=== PATIENT | female | born 1990 | race Caucasian/White ===

== ENCOUNTER 2017-07-27 11:47 | Emergency (ER) | payer MEDICAID, OTHER ==
[2017-07-27 11:47] VITALS: BMI 31.6
--- NOTE | 2017-07-27 12:09 | C.PDOC ---
History Of Present Illness 26-year-old female, currently , presents to the ER via BLS for evaluation of vaginal spotting. Patient noticed some vaginal bleeding this morning. She then called her shafting worker Dr. Briones, who referred her to the ER for further evaluation. LMP was 04/18/17. She otherwise denies any severe abdominal pain, SOB, chest pain, dizziness, nausea, vomiting, weakness, or other complaints. Time Seen by Provider: 07/27/17 11:57 Chief Complaint (Nursing): Abdominal Pain History Per: Patient History/Exam Limitations: no limitations Onset/Duration Of Symptoms: Hrs Current Symptoms Are (Timing): Still Present Quality Of Discomfort: Cramping Abnormal Vaginal Bleeding: No Last Menstral Period: 04/18/17 : 4 Para: 3 Past Medical History Reviewed: Historical Data, Nursing Documentation, Vital Signs Vital Signs: Last Vital Signs Temp 98 F 07/27/17 14:36 Pulse 78 07/27/17 14:36 Resp 18 07/27/17 14:36 BP 110/76 07/27/17 14:36 Pulse Ox 98 07/27/17 17:25 - Medical History PMH: No Chronic Diseases Surgical History: No Surg Hx - [facility] Procedures ARTIF RUPT MEMBRANES NEC (03/22/13) DELIVERY OF PRODUCTS OF CONCEPTION, EXTERNAL APPROACH (02/05/15) MANUAL ASSIST DELIV NEC (03/22/13) 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 Constitutional: Negative for: Fever Cardiovascular: Negative for: Chest Pain Respiratory: Negative for: Shortness of Breath Gastrointestinal: Negative for: Nausea, Vomiting, Abdominal Pain Genitourinary: Positive for: Vaginal Bleeding (spotting) Neurological: Negative for: Weakness, Dizziness Physical Exam - Physical Exam Appears: Non-toxic, No Acute Distress Skin: Normal Color, Warm, Dry Head: Atraumatic, Normacephalic Eye(s): bilateral: Normal Inspection, PERRL, EOMI Nose: Normal Oral Mucosa: Moist Neck: Normal ROM, Supple Chest: Symmetrical Cardiovascular: Rhythm Regular, No Murmur Respiratory: Normal Breath Sounds, No Rales, No Rhonchi, No Wheezing Gastrointestinal/Abdominal: Soft, No Tenderness, Other (Gravid abdomen) Pelvic: Normal External Exam (with closed cervix), No Vaginal Bleeding, No Vaginal Discharge, No Cervix Open, Enlarged Uterus, No Tender Uterus Extremity: No Pedal Edema Extremity: Bilateral: Atraumatic, Normal Color And Temperature, Normal ROM Neurological/Psych: Oriented x3, Normal Speech Gait: Steady ED Course And Treatment O2 Sat by Pulse Oximetry: 98 (RA) Pulse Ox Interpretation: Normal - CT Scan/US pelvic ultrasound Other Rad Studies (CT/US): U/S Performed By Ms CT/US Interpretation: Good heart tones, (+) movement Progress Note: On re-evaluation abdomen soft non-tender. Discharged in stable condition, no vaginal bleeding Reassessment Condition: Improved Medical Decision Making Medical Decision Making: Time: 12:15 Plan: -- heart tones Patient informed of normal pelvic exam, showing no vaginal bleeding. Bedside ultrasound performed, demonstrating good heart tones. Patient is stable for d/c home. Advised to follow up with her obgyn for further evaluation. Disposition Counseled Patient/Family Regarding: Studies Performed, Diagnosis, Need For Followup - Disposition Referrals: Kylah Srivastava [Non-Staff] - Disposition: HOME/ ROUTINE Disposition Time: 12:15 Condition: STABLE Additional Instructions: Follow up with [facility] for further evaluation Return to ED if any increase symptoms Instructions: Bleeding With Forms: [facility] (Chilean) Print Language: BAHRAINI - POA Present On Arrival: None - Clinical Impression Clinical Impression: Vaginal bleeding during , - PA / FUNCTIONAL TESTER TYPEWRITERS / Resident Statement MD/DO has reviewed & agrees with the documentation as recorded. - Scribe Statement The provider has reviewed the documentation as recorded by the Scribe (Celestina Martin) All medical record entries made by the Scribe were at my direction and personally dictated by me. I have reviewed the chart and agree that the record accurately reflects my personal performance of the history, physical exam, medical decision making, and the department course for this patient. I have also personally directed, reviewed, and agree with the discharge instructions and disposition.
[2017-07-27 14:36] VITALS: BP 110/76; PULSE 78; RESP 18; TEMP 98; O2SAT 98
== END 2017-07-27 14:36 | disposition home or self-care (01) ==
LOC: C.ER 11:47
DX: O46.90 Antepartum hemorrhage, unspecified, unspecified trimester (principal)

== ENCOUNTER 2017-11-25 07:16 | Inpatient (IN) | payer MEDICAID, OTHER ==
--- NOTE | 2017-11-25 08:25 | OBADHP ---
Datetime: 11/25/2017 08:21 Pelvic Type - PN: Adequate Extremities - PN: Normal Abdomen - PN: Normal Back - PN: Normal Breast - PN: Not Done Lungs - PN: Not Done Heart - PN: Not Done Thyroid - PN: Not Done Neurologic - PN: Normal HEENT - PN: Normal General - PN: Normal FHR - Baseline A Provider: 135 Amniotic Fluid Color, Provider: Clear Membranes, Provider: Ruptured Comments, ACOG Physical Exam: abdomen is soft and gravid Pool Provider: Negative Nitrazine Provider: Positive Vital Signs Provider: Reviewed IP Chief Complaint: Uterine contractions; Suspected ruptured membranes FHR Category Provider Fetus A: Category I NICHD Decel Fetus A IP Provider: None Dilatation, Provider: 6 Effacement, Provider: 80 Station, Provider: -2 Genitourinary Exam: Normal DTRs - PN: Normal EGA AdmitDate IP: 39.4 IP Adm Impression: Term, intrauterine ; Active labor; Ruptured Membranes IP Admit Plan: Admit to unit; Initiate labor protocol
[2017-11-25] MEDS ORDERED: Oxytocin 20 units in LR 2,000 ML IV ONE (08:42)
--- NOTE | 2017-11-25 08:43 | OBADHP ---
Datetime: 11/25/2017 08:21 Admit Comment, IP Provider: patient is 27 yo with IUP at 39+4 weeks based on FRED 11/28/17 per pr enatal chart patient obtained care with NH in [place] patients EDC was adjusted during care patient reports SROM at 6am clear fluids + FM + CTX - LOF - VB POB: 2005 FT male 7lbs 3oz, 2013 FT female 7lbs 3oz, FT male 7lbs 3oz PGYN: possible history of chlamydia patient took medication PMH: denies took vitamins denies family history NKDA denies smoking drinking and drug use A+ blood type 07/21 chlamydia positive 09/01 chlamydia negative gonorrhea negative 1 hour GTT 98 HIV negative Hep B negative RPR negative rubella nonimmune GBS unknown though per is was obtained on 11/10 SVE: 6/80/-2 + nitrazine, bag of membranes palpated as bulging, suspect high leak vitals reviewed tracing category 1 toco with contractions Q5 ---> irregular A/P: 27 yo with IUP at 39+4 weeks, labor EFM/[place] IVF admission labs GBS negative desires epidural NICHD Variability Prov Fetus A: Moderate 6-25bpm NICHD Accel Fetus A IP Provider: [id number] EGA AdmitDate IP: 39.4
[2017-11-25] MEDS ORDERED: Lactated Ringer's 1,000 ML IV SCH (08:45)
[2017-11-25] MEDS ORDERED: Bupivacaine HCl/FentaNYL Cit 100 ML EPI ONE (09:09)
[2017-11-25 09:12] LABS: HEMOGLOBIN 10.4 g/dL (11.0-16.0); MEAN CELL VOLUME 84.5 fL (81.0-99.0); MEAN CORPUSCULAR HGB CONC 33.1 g/dL (33.0-37.0); MEAN PLATELET VOLUME 7.4 fL (7.2-11.7); NEUT % 66.4 % (50.0-75.0); RBC 3.72 Mil/uL (3.80-5.20); WHITE BLOOD COUNT 9.3 K/uL (4.8-10.8)
[2017-11-25 09:13] LABS: BASO % 0.3 % (0.0-2.0); EOS % 0.5 % (0.0-4.0); LYMPH # 2.3 K/uL (1.0-4.3); LYMPH % 24.9 % (20.0-40.0); MONO # 0.7 K/uL (0.0-0.8); MONO % 7.9 % (0.0-10.0); NEUT # 6.2 K/uL (1.8-7.0); NRBC % 0.1 % (0.0-2.0)
[2017-11-25 09:29] LABS: ALB/GLOB RATIO 1.2 (1.0-2.1); ALBUMIN 3.6 g/dL (3.5-5.0); ALT/SGPT 24 U/L (9-52); AST/SGOT 25 U/L (14-36); BLOOD UREA NITROGEN 5 mg/dL (7-17); CALCIUM 9.4 mg/dl (8.6-10.4); GFR NON-AFRICAN AMERICAN > 60
--- NOTE | 2017-11-25 09:59 | OBPN ---
Datetime: 11/25/2017 08:21 IP Progress Impression: Normal progression of labor IP Procedures: Artificial ROM IP Progress Plan: Continue present management Pool Provider: Negative Nitrazine Provider: Positive Membranes, Provider: Ruptured Amniotic Fluid Color, Provider: Clear FHR - Baseline A Provider: 100 IP Progress Note Comment: patient seen after edpiural irreg FHR and loss of contact, monitors readjusted, FHR noted to be lower than normal in range of 100s, patient resussicated and positioned left lateral with IVF running, AROM was performed by me at 9:54am with clear fluids, FHR recovered, cont current management, anticiapte vag devliery Vital Signs Provider: Reviewed Dilatation, Provider: 8 Effacement, Provider: 80 Station, Provider: 0 NICHD Decel Fetus A IP Provider: Variable
[2017-11-25] MEDS ORDERED: Erythromycin 0.5% Ophth Oint 1 APPLIC/3.5 G ONE (10:34)
[2017-11-25] MEDS ORDERED: Phytonadione 1 mg/0.5 ml Inj (Neonatal) ONE (10:34)
[2017-11-25] MEDS ORDERED: Benzocaine/Menthol 20%-0.5% Topical Spray (60 ml) TOP PRN (10:54)
[2017-11-25] MEDS ORDERED: Oxycodone/Acetaminophen 5/325 mg Tab PO PRN (10:54)
--- NOTE | 2017-11-25 11:30 | OBDS ---
DELIVERY PERSONNEL Delivery Doctor: dr ritika gonzalez Assembly Machine Set Up Mechanic: [facility] Anesthesiologist: dr olivier MATERNAL INFORMATION Delivery Anesthesia: Epidural Estimated Blood Loss (ml): 350 Placenta Cultured: No Maternal Complications: None RN Comments: liveborn baby boy via at 1025 Provider Comments: patient delieved healthy [place] male at 10:25am in BRIANNE position, placenta at 1 0:36am, weighin 9lb 5oz, EBL 350cc, lacerations repaired without local anesthesia as patient still diaz d analgesia from epidural LABOR SUMMARY EDC: 11/28/2017 00:00 No. Babies in Womb: 1 Attempted: No Labor Anesthesia: Epidural LABOR INFORMATION Reason for Induction: Not Applicable Onset of Labor: 11/25/2017 07:15 Complete Dilatation: 11/25/2017 10:00 Oxytocin: N/A Group B Beta Strep: Negative Steroids Given: None Reason Steroids Not Administered: Not Applicable MEMBRANES Membranes Rupture Method: Spontaneous Rupture of Membranes: 11/25/2017 06:00 Length of Rupture (hrs): 4.42 Amniotic Fluid Color: Clear Amniotic Fluid Amount: Small Amniotic Fluid Odor: None STAGES OF LABOR Stage 1 hrs: 2 Stage 1 min: 45 Stage 2 hrs: 0 Stage 2 min: 25 Stage 3 hrs: 0 Stage 3 min: 7 Total Time in Labor hrs: 3 Total Time in Labor min: 17 VAGINAL DELIVERY Episiotomy: None Laceration Extension: First Degree Laceration Type: Perineal; Vaginal Laceration Repair: Yes Laceration Repair Note: right sided vaginal wall abrasions repaired with 3-0 chromic in interuppted fashion Initial Vag Sponge Count: 10 Final Vag Sponge Count: 10 Initial Vag Sharps Count: 1 Final Vag Sharps Count: 1 Sponge Count Correct: Yes Sharps Count Correct: Yes Count Comment: dr ritika gonzalez counted instruments,sponges, and needle, all counts correct BABY A INFORMATION Infant Delivery Date/Time: 11/25/2017 10:25 Method of Delivery: Vaginal Born in Route : No : N/A Forceps: N/A Vacuum Extraction: N/A Shoulder Dystocia : No SHOULDER DYSTOCIA BABY A Delivery Date/Time: 11/25/2017 10:25 PRESENTATION/POSITION BABY A Presentation: Cephalic Cephalic Presentation: Vertex Vertex Position: Left Occipital Anterior Breech Presentation: N/A PLACENTA INFORMATION BABY A Placenta Delivery Time : 11/25/2017 10:32 Placenta Method of Delivery: Spontaneous Placenta Status: Delivered SCORES BABY A Heart Rate 1 min: >100 bpm Resp Effort 1 min: Slow, Irregular Reflex Irritability 1 min: Cough or Sneeze or Pulls Away Muscle Tone 1 min: Active Motion Color 1 min: Body [place], Extremities Blue SCORE 1 MIN: 8 Heart Rate 5 min: >100 bpm Resp Effort 5 min: Good Cry Reflex Irritability 5 min: Cough or Sneeze or Pulls Away Muscle Tone 5 min: Active Motion Color 5 min: Body [place], Extremities Blue SCORE 5 MIN: 9 INFANT INFORMATION BABY A Gestational Age at Delivery: 39.4 Gestational Status: Term Outcome : Liveborn Condition : Stable Sex: Male IDENTIFICATION/MEDS BABY A ID Band Location: Left Leg; Left Arm Sensor Applied: Yes Vitamin K Given : Not Given Erythromycin Given: Not Given WEIGHT/LENGTH BABY A Birthweight (gms): 4220 Infant Weight (lb): 9 Weight (oz): 5 Infant Length Inches: 22.00 Infant Length cms: 55.9 CORD INFORMATION BABY A No. Cord Vessels: 3 Cord pH Baby Venous: 7.09 Cord Blood Taken: Yes Suction: Mouth; Nose
[2017-11-25 12:12] LABS: SQUAMOUS EPITHIAL 2 /hpf (0-5); URINE BACTERIA RARE (<OCC); URINE BILIRUBIN NEGATIVE (NEGATIVE); URINE BLOOD 3+ (NEGATIVE); URINE COLOR Yellow (YELLOW); URINE GLUCOSE (UA) NORMAL (Normal); URINE LEUKOCYTE ESTERASE NEG Leu/uL (Negative); URINE PROTEIN 1+ mg/dL (NEGATIVE)
[2017-11-25 12:13] LABS: URINE CLARITY SLHAZY (Clear)
[2017-11-25] MEDS: Oxycodone/Acetaminophen 5/325 mg Tab PO PRN (23:34)
[2017-11-26] MEDS: Oxycodone/Acetaminophen 5/325 mg Tab PO PRN (08:37)
[2017-11-26 08:49] LABS: BASO # 0.1 K/uL (0.0-0.2); BASO % 0.5 % (0.0-2.0); EOS # 0.2 K/uL (0.0-0.7); EOS % 1.8 % (0.0-4.0); HEMOGLOBIN 8.9 g/dL (11.0-16.0); LYMPH # 3.1 K/uL (1.0-4.3); LYMPH % 27.9 % (20.0-40.0); MEAN CORPUSCULAR HGB CONC 32.9 g/dL (33.0-37.0); MEAN PLATELET VOLUME 7.5 fL (7.2-11.7); MONO # 0.9 K/uL (0.0-0.8); MONO % 8.1 % (0.0-10.0); NEUT # 6.8 K/uL (1.8-7.0); NEUT % 61.7 % (50.0-75.0); RBC 3.19 Mil/uL (3.80-5.20); RED CELL DISTRIBUTION WIDTH 14.3 % (11.5-14.5)
[2017-11-26] MEDS: Multiple Vitamins Tab PO SCH (09:15)
--- NOTE | 2017-11-26 09:26 | OBPPN ---
Datetime: 11/26/2017 09:24 PP Pain Prov: Within normal limits PP Nausea Prov: Denies PP Flatus Prov: Yes PP Breasts Prov: Normal PP Heart Prov: Normal PP Lungs Prov: Normal PP Abdomen/Uterus Prov: Normal PP Lochia Prov: Normal PP Vulva/Perineum Prov: Normal PP CVA Tenderness Prov: Normal PP Extremities Prov: Normal PP C/S Incision Prov: Not Applicable PP Progress Prov: Normal PP Impression Prov: Normal progression PP Plan Prov: Continue present management PP Progress Note Prov: pt seen adn examied and reprots pain rlq controlld with medicaion. pt ambuiat n,b odiign, passing flatus, tolerated regular diet. pt denies nay fever, chills, nause, vomiting cp, sob VSS PE GEN NAD AAO x 3 RESP: CTAB: CVS:RRR< +S1/S2 ABDS: soft, NT/ND, +BS, no gurding ,no rebound tendenress ,no rigidity, no uterine tenderss VE: minimal lohcia, non foul smelling EXT; no calf tenderness, negative boni's sign A/P s/p ppd #1 doign well pain mangnet bernardo mckeon encourage bresat feeidn adn ambluaiton IP PP Procedures: None Vital Signs Provider PP: Reviewed; Within Normal Limits
[2017-11-26] MEDS: Bacitracin 500 Units/gm Oint Foilpak UD TOP SCH ×3 (10:00→18:16)
[2017-11-27 09:32] VITALS: BP 116/72; PULSE 63; RESP 18; TEMP 98.1; O2SAT 100
--- NOTE | 2017-11-27 09:58 | OBPPN ---
Datetime: 11/27/2017 09:54 PP Pain Prov: Within normal limits PP Nausea Prov: Denies PP Flatus Prov: Yes PP Breasts Prov: Normal PP Heart Prov: Normal PP Lungs Prov: Normal PP Abdomen/Uterus Prov: Normal PP Lochia Prov: Normal PP Vulva/Perineum Prov: Normal PP CVA Tenderness Prov: Normal PP Extremities Prov: Normal PP C/S Incision Prov: Not Applicable PP Progress Prov: Normal PP Impression Prov: Normal progression PP Plan Prov: Discharge PP Progress Note Prov: pt seen adn examied and reprots pain rlq controlld with medicaion. pt ambuiat n,b odiign, passing flatus, tolerated regular diet. pt denies nay fever, chills, nause, vomiting cp, sob VSS PE GEN NAD AAO x 3 RESP: CTAB: CVS:RRR< +S1/S2 ABDS: soft, NT/ND, +BS, no gurding ,no rebound tendenress ,no rigidity, no uterine tenderss fudnus; firm, below level of ubmiclus VE: minimal lohcia, non foul smelling EXT; no calf tenderness, negative boni's sign A/P s/p ppd 2 doign well dc home rt clinic 6 weke precaluatin givne Vital Signs Provider PP: Reviewed; Within Normal Limits
--- NOTE | 2017-11-27 09:58 | OBDCSUM ---
Datetime: 11/27/2017 08:58 Discharged to, Provider: Home Follow up at, Provider: clinic Disch Instr Activity: Normal activity Disch Instr Diet: Regular Discharge Instructions, Provider: Routine instructions given Discharge Diagnosis, Provider: Term Delivered Discharge Time: 11/27/2017 09:55 Follow up in weeks, Provider: 6 weeks Disch Referrals: None Contraception discussed, Prov: Yes Disch Activity Restrictions: Nothing in vagina - [place], tampons, douche Discharge Comment, Provider: precuating shruthi Contraception after Delivery: Not Planning to Use
[2017-11-27] MEDS: Oxycodone/Acetaminophen 5/325 mg Tab PO PRN (10:11)
[2017-11-27] MEDS: Multiple Vitamins Tab PO SCH (10:11)
[2017-11-27] MEDS: Bacitracin 500 Units/gm Oint Foilpak UD TOP SCH (10:12)
== END 2017-11-27 14:40 | disposition home or self-care (01) | DRG 560 ==
LOC: C.EROB 07:16 → C.4D 08:26 → C.4M 14:00
PROVIDERS: ADMIT Obstetrics & Gynecology; ATTEND Obstetrics & Gynecology
PROC: 0HQ9XZZ Repair Perineum Skin, External Approach (ICD-10-PCS; principal; 2017-11-25)
PROC: 10907ZC Drainage of Amniotic Fluid, Therapeutic from Products of Conception, Via Natural or Artificial Opening (ICD-10-PCS; 2017-11-25)
PROC: 10E0XZZ Delivery of Products of Conception, External Approach (ICD-10-PCS; 2017-11-25)
DX: O70.0 First degree perineal laceration during delivery (principal); Z37.0 Single live birth; Z3A.39 39 weeks gestation of pregnancy